=== PATIENT | male | born 1980 | race Two or more races ===

== ENCOUNTER 2017-01-08 10:44 | Outpatient (CLI) | payer OTHER ==
[2017-01-08 11:27] LABS: BASOPHILS # (AUTO) 0.1 X10^3/uL (0.0-0.1); BASOPHILS % (AUTO) 1.5 % (0.2-1.0); EOSINOPHILS # (AUTO) 0.3 x10^3/uL (0.0-0.2); HEMATOCRIT 46.4 % (42.0-54.0); HEMOGLOBIN 15.9 g/dL (13.5-18.0); LYMPHOCYTES % (AUTO) 34.3 % (21.0-51.0); MEAN CORPUSCULAR HEMOGLOBIN 31.1 pg (27.0-34.0); MEAN CORPUSCULAR HGB CONC 34.3 g/dL (33.0-35.0); MEAN CORPUSCULAR VOLUME 90.7 fL (80.0-100.0); MEAN PLATELET VOLUME 8.6 fL (7.4-11.0); MONOCYTES # (AUTO) 0.3 x10^3/uL (0.3-0.8); MONOCYTES % (AUTO) 5.6 % (0.0-13.0); NEUTROPHILS # (AUTO) 3.2 x10^3/uL (2.2-4.8); NEUTROPHILS % (AUTO) 53.6 % (42.0-75.0); PLATELET COUNT 203 X10^3/uL (150.0-450.0); RED BLOOD COUNT 5.12 X10^6/uL (4.7-6.0); RED CELL DISTRIBUTION WIDTH 13.1 % (11.6-16.5)
[2017-01-08 11:38] LABS: ALANINE AMINOTRANSFERASE 118 Units/L (12-78); ALBUMIN 3.3 g/dL (3.4-5.0); ALKALINE PHOSPHATASE 155 Units/L (46-116); ASPARTATE AMINO TRANSFERASE 66 Units/L (15-37); BLOOD UREA NITROGEN 6 mg/dL (7-18); CARBON DIOXIDE 26.3 mmol/L (21-32); CHLORIDE 103 mmol/L (98-107); COR CA(FOR HYPOALB) 9.6 mg/dL (8.5-10.1); COR NA(FOR HYPERGLY) 141 mmol/L (136-145); CREATININE 0.63 mg/dL (0.70-1.30); GLUCOSE 177 mg/dL (65-99); SODIUM 139 mmol/L (136-145); TOTAL PROTEIN 7.9 g/dL (6.4-8.2); eGFR BLACK RACES > 60 (>60); eGFR NON BLACK RACES > 60 (>60)
[2017-01-08] MEDS ORDERED: NS 500 ML IV 500 ML IV ONE (11:42)
[2017-01-08] MEDS ORDERED: FENTANYL INJ 100 mcg ONE (11:45)
[2017-01-08] MEDS ORDERED: XYLOCAINE 1 % (PLAIN) ONE (11:47)
[2017-01-08 13:15] VITALS: BMI 29.1
[2017-01-08] MEDS ORDERED: VERSED ONE (15:04)
[2017-01-08 17:33] VITALS: BP 127/76
--- NOTE | 2017-01-13 06:54 | CT ---
CT-guided liver biopsy Indication: Chronic viral hepatitis-C Technique/findings: After the procedure was explained to the patient and all questions were answered the patient gave written informed consent for liver biopsy. Patient was then placed in the supine p osition with localizing grid placed in the right upper quadrant. After localizing the place for live r biopsy was determined the patient was prepped and draped in usual sterile fashion. The nurse anest hetist was present for entire procedure giving both IV Fentanyl and Versed for moderate sedation . P lease see separate note for further description of IV pain medication. Patient was also given local 1% lidocaine in expected site of needle biopsy. Under CT guidance a 19 gauge trocar was advanced int o the right hepatic lobe. After confirmation of placement of the trocar a 20 gauge, 5 cm biopsy need le was placed through the trocar with subsequent biopsy performed. This was repeated three additiona l times for a total 4 core biopsy specimens obtained. The specimens were immediately placed in forma shoaib. There were no procedural or immediate postprocedural complication identified . The patient tole rated the procedure well with minimal blood loss. There is moderate steatosis of the liver. Grossly the liver has a non cirrhotic morphology. Small ro und hypoattenuating lesion within the upper pole the right kidney is too small to accurately charact erize however likely represents a cyst. Impression: 1.Successful non targeted liver biopsy with 4 core specimens obtained and placed in formalin and sen t to pathology for further evaluation . No procedural or immediate postprocedural complication. The patient is to followup with Dr. Garcia for results and further management. Reported By:
== END 2017-01-08 17:40 | disposition home or self-care (01) | DRG 443 ==
LOC: RAD 10:44
PROVIDERS: ATTEND Internal Medicine Gastroenterology
PROC: 0FB13ZX Excision of Right Lobe Liver, Percutaneous Approach, Diagnostic (ICD-10-PCS; principal; 2017-01-08)
DX: B18.2 Chronic viral hepatitis C (principal); K76.0 Fatty (change of) liver, not elsewhere classified
CPT/HCPCS: 36415; 77012; 80053; 85025; 85610; 85730; A4222; J2001; J2250; J3010

== ENCOUNTER 2017-04-10 11:09 | Day surgery (SDC) | payer OTHER ==
[2017-04-10] MEDS ORDERED: D5 LR 1000 ML 1,000 ML IV ONE (11:16)
[2017-04-10] MEDS ORDERED: DIPRIVAN VIAL 20 ML ONE (12:10)
[2017-04-10 13:42] VITALS: BP 106/55
== END 2017-04-10 13:10 | disposition home or self-care (01) ==
LOC: SURG1 11:09
PROVIDERS: ATTEND Internal Medicine Gastroenterology
PROC: 0DB68ZX Excision of Stomach, Via Natural or Artificial Opening Endoscopic, Diagnostic (ICD-10-PCS; principal; 2017-04-10 16:30)
PROC: 0DB88ZX Excision of Small Intestine, Via Natural or Artificial Opening Endoscopic, Diagnostic (ICD-10-PCS; principal; 2017-04-10 16:30)
PROC: 0DJ08ZZ Inspection of Upper Intestinal Tract, Via Natural or Artificial Opening Endoscopic (ICD-10-PCS; principal; 2017-04-10 16:30)
PROC: 0DB38ZX Excision of Lower Esophagus, Via Natural or Artificial Opening Endoscopic, Diagnostic (ICD-10-PCS; principal; 2017-04-10 16:30)
DX: R10.13 Epigastric pain (principal); K21.9 Gastro-esophageal reflux disease without esophagitis; K74.60 Unspecified cirrhosis of liver; Z86.19 Personal history of other infectious and parasitic diseases; R14.0 Abdominal distension (gaseous); B37.81 Candidal esophagitis; K31.84 Gastroparesis; K29.60 Other gastritis without bleeding; R11.0 Nausea
CPT/HCPCS: A4217; J3490; J7120